=== PATIENT | female | born 1985 | race Caucasian/White ===

== ENCOUNTER 2023-06-03 09:23 | Emergency (ER) | payer OTHER, SELFPAY ==
[2023-06-03 09:26] VITALS: BP 127/83
--- NOTE | 2023-06-03 09:43 | ED.GENMED ---
History of Present Illness
General
Chief Complaint: Problems
Source: patient
Time Seen by Provider: 06/03/23 09:30
Travel History
Have you had any contact with someone who has COVID-19?: No
Do you have any symptoms of coronavirus? Fever > 100 degrees, chills, cough, shortness of breath, sore throat, loss of taste or smell, muscle aches, or headache?: No
History of Present Illness
History of Present Illness:
37-year-old female currently 17 weeks , presents to the emergency department for evaluation after she was playing with her daughter at home when they are large 100 pound plus dog accidentally jumped on her stomach, contacted the on-call team
last night and was recommended to come to the emergency department for further evaluation. Patient states she still feels the baby moving and has not had any vaginal bleeding, fluid leaking or discharge. Patient has no other concerns at this time.
She has a scheduled follow-up visit for June 09 for ultrasound imaging and monitoring.
Past History
Past History
ED Past Medical History: Asthma
ED Past Surgical History: Tonsilectomy and Other (Gastric sleeve)
Social History
Tobacco: Non-smoker
Alcohol: None
Drug: None
Personal: Partner
Living: with family
Review of Systems
Review of Systems
All Other Systems: ROS reviewed and negative except as documented in HPI and ROS
Phy Exam
Physical Exam
Physical Exam:
GENERAL: Alert , in no apparent distress
EYE: conjunctiva clear
Head: Normocephalic atraumatic
NECK: Supple,
ENT: mmm.
LUNGS: no acute respiratory distress
Abdomen: Soft, nontender, nondistended
NEUROLOGICAL: Alert and oriented
SKIN: Warm and dry, skin intact.
MUSCULOSKELETAL: well perfused.
PSYCH: Normal and appropriate interaction.
Scores
Heart Failure Risk
Heart Failure Risk Score: Not Applicable
Heart Score for Chest Pain Patients
STEMI patient?: Not applicable
Withdrawal Assessment of Alcohol
Withdrawal Assessment Completed?: Not applicable
Course
Vital Signs
Initial and Last Documented VS:
Initial Vital Signs
Temp Pulse Resp BP Pulse Ox
98.4 F 92 18 127/83 98
06/03/23 09:26 06/03/23 09:26 06/03/23 09:06/03/23 09:06/03/23 09:26
Last Documented Vital Signs
Temp Pulse Resp BP Pulse Ox
98.4 F 92 18 127/83 98
06/03/23 09:26 06/03/23 09:06/03/23 09:06/03/23 09:06/03/23 09:26
Information
Weeks gestation: Weeks: (17)
Location: Location: ([facility])
MDM/Problems Addressed
MDM/Problems Addressed:
I performed a bedside ultrasound for the patient which showed movement as well as cardiac activity with a heart rate of around 150 to 160 bpm. At present time patient does not require further emergency care and is stable for discharge home.
I did advise she contact her [facility] office and notify them that she was in the emergency department and everything appears okay. She will follow-up as recommended or as scheduled. Stable for discharge home.
*Pulse Oximetry
Patient hypoxic: no
*Critical Care Note
Total Time (30-74mins, 75-104mins- exclusive of procedures): Not Applicable
ED Attending Note
-
Portions of this chart may have been created with voice recognition software.� Occasional wrong word or��sound alike� substitutions may have occurred due to the inherent limitations of voice recognition software.
Discharge Plan
Departure
Patient Disposition: Home (Routine Discharge)
Date of Disposition: 06/03/23
Time of Disposition: 09:43
Patient with high blood pressure during this ER visit?: No
Discharge Problem:
17 weeks gestation of
Prescriptions:
No Action
multivitamin [[id number]] 1 EACH tablet
1 ea PO DAILY
dextroamphetamine-amphetamine [Adderall] 30 MG tablet
30 mg PO DAILY
Symbicort Inhaler
2 puff inhalation BID
cephalexin 500 mg capsule
500 mg PO BID 7 Days Qty: 14 0RF
Interventions
Interventions:
*Risk Screen - Suicide Last Done: 06/03/23 09:26
*General Assessment Last Done: 06/03/23 09:26
*Neglect/Abuse Screening Last Done: 06/03/23 09:26
ED- Fall Risk Assessment Last Done: 06/03/23 09:59
*ED COVID-19 Vaccine History Last Done: 06/03/23 09:26
*Nursing Disposition Last Done: 06/03/23 09:59
ED-Female Genitourinary Assessment Last Done: 06/03/23 09:59
Discharge Date and Time
Discharge Date/Time: 06/03/23 10:02
== END 2023-06-03 10:02 | disposition home or self-care (01) ==
LOC: EMR 09:23
PROVIDERS: EMERGENCY PHYSICIAN Emergency Medicine; FAMILY PHYSICIAN Internal Medicine
DX: O99.891 Other specified diseases and conditions complicating pregnancy (principal); O99.512 Diseases of the respiratory system complicating pregnancy, second trimester; J45.909 Unspecified asthma, uncomplicated; Z3A.17 17 weeks gestation of pregnancy
CPT/HCPCS: 99282